=== PATIENT | male | born 1985 | race Hispanic/Latino ===

== ENCOUNTER 2023-09-07 22:26 | Emergency (ER) | payer SELFPAY ==
[2023-09-07] MEDS ORDERED: MORPHINE 4 MG/ML SYR ONE (23:50)
[2023-09-07] MEDS ORDERED: CEFTRIAXONE 1000 MG/VIAL ONE (23:50)
[2023-09-07] MEDS ORDERED: LIDOCAINE 1% MPF 30 ML VIAL ONE (23:51)
[2023-09-07] MEDS ORDERED: NA CHLORIDE 0.9% 50 ML ONE (23:51)
[2023-09-07] MEDS ORDERED: ONDANSETRON 4 MG/2 ML VIAL ONE (23:51)
[2023-09-07] MEDS ORDERED: KETOROLAC 30 MG/ML INJ ONE (23:51)
[2023-09-08] MEDS ORDERED: SMZ./TMP. 800/160 MG TABLET ONE (00:07)
[2023-09-08] MEDS ORDERED: LIDOCAINE 1% MPF 30 ML VIAL ONE (01:10)
[2023-09-08] MEDS ORDERED: LIDOCAINE 1% 20 ML MDV ONE (01:10)
--- NOTE | 2023-09-08 01:27 | EDPHYS ---
Physician Documentation [facility] Name: Joey Arreguin Age: 38 yrs Sex: Male : 1985 Arrival Date: 09/07/2023 Time: 22:26 Bed 8 Private MD: ED Physician Dalton Moon HPI: 09/07 22:32 This 38 yrs old Male presents to ER via Unassigned with complaints of Back sp4 Pain. 22:51 Upper back abscess . sp4 09/08 03:08 Patient presents with worsening upper midline pain over the back starting 4 days ago. sp4 There is redness and swelling indicative of cutaneous abscess of the upper back at the midline. . Historical: - Allergies: 09/07 22:53 No Known Allergies; lg3 - Home Meds: 22:53 lisinopril 40 mg Oral tablet 1 tab daily [Active]; lg3 - PMHx: 22:53 Hypertensive disorder; lg3 - PSHx: 22:53 None; lg3 - Immunization history:: Adult Immunizations up to date. - Social history:: Smoking status: Patient reports the use of cigarette tobacco products, smokes one-half pack cigarettes per day, Patient uses alcohol, only on a social basis. - Family history:: not pertinent. ROS: 09/08 03:08 Constitutional: Negative for fever, chills, and weight loss, Positive for Upper back sp4 pain and swelling, redness All other systems are negative, Exam: 03:08 Constitutional: This is a well developed, well nourished patient who is awake, alert, sp4 and in no acute distress. Head/Face: Normocephalic, atraumatic. Eyes: Pupils equal round and reactive to light, extra-ocular motions intact. Lids and lashes normal. Conjunctiva and sclera are not injected. Cornea within normal limits. Periorbital areas with no swelling, redness, or edema. ENT: Nares patent. No nasal discharge, no septal abnormalities noted. Tympanic membranes are normal and external auditory canals are clear. Oropharynx with no redness, swelling, or masses, exudates, or evidence of obstruction, uvula midline. Mucous membranes moist. Neck: Trachea midline, no thyromegaly or masses palpated, and no cervical lymphadenopathy. Supple, full range of motion without nuchal rigidity, or vertebral point tenderness. Chest/axilla: Normal chest wall appearance and motion. Nontender with no deformity. No lesions are appreciated. Cardiovascular: Regular rate and rhythm with a normal S1 and S2. No gallops, murmurs, or rubs. Normal PMI, no JVD. No pulse deficits. Respiratory: Lungs have equal breath sounds bilaterally, clear to auscultation and percussion. No rales, rhonchi or wheezes noted. No increased work of breathing, no retractions or nasal flaring. Abdomen/GI: Soft, non-tender, with normal bowel sounds. No distension or tympany. No guarding or rebound. No evidence of tenderness throughout. Back: No spinal tenderness. No costovertebral tenderness. Positive upper back redness, pain, tenderness, swelling indicative of infected moderate size sebaceous cyst. Skin: Warm, dry with normal turgor. Normal color with no rashes, no lesions, and no evidence of cellulitis. MS/ Extremity: Pulses equal, no cyanosis. Neurovascular intact. Full, normal range of motion. Neuro: Awake and alert, GCS 15, oriented to person, place, time, and situation. Cranial nerves II-XII grossly intact. Motor strength 5/5 in all extremities. Sensory grossly intact. Psych: Awake, alert, with orientation to person, place and time. Behavior, mood, and affect are within normal limits Vital Signs: 09/07 22:48 BP 139 / 93; Pulse 110; Resp 17 S; Temp 98.9(O); Pulse Ox 97% on R/A; Weight 112.04 kg lg3 (R); Height 5 ft. 9 in. (R); Pain 08/19; 09/08 00:05 BP 136 / 79; Pulse 93; Resp 16; Pulse Ox 96% ; jb4 01:30 BP 143 / 92; Pulse 86; Resp 16 S; Pulse Ox 96% on R/A; km8 09/07 22:48 Body Mass Index 36.48 (112.04 kg, 175.26 cm) lg3 09/07 22:48 Pain Scale: Adult lg3 Procedures: 01:23 I \T\ D: Incision and drainage was performed for an abscess of the bilateral posterior sp4 chest upper back midline , thoracic spinal area , Infected sebaceous cyst Prepped with Betadine, Anesthetized with 30 ml's 1% Lidocaine. Incised with #11 blade. Drained moderate amount purulent fluid. bloody fluid. Abscess cavity explored. Packed with iodoform gauze, Dressing: sterile 4x4 gauze, Foam tape the patient tolerated the procedure well, This appears to be infected sebaceous cyst over the upper back, infected sebaceous material was drained and iodoform packing 1 inch was placed. Patient advised to return back on Friday in 2 days at 9 PM for packing removal and dressing change. . MDM: 09/07 22:34 Patient medically screened. sp4 09/08 01:23 Differential diagnosis: Abscess, sebaceous cyst, sebaceous infected cyst, diabetic sp4 abscess. Data reviewed: vital signs, nurses notes, lab test result(s). Consideration of Admission/Observation Escalation of care including admission/observation considered. ED course: Patient will be prescribed Bactrim twice a day for 10 days ibuprofen 800 mg 3 times a day and will advise patient to return in 2 days at 9 PM for packing removal and dressing change. . 09/08 01:38 Order name: Glucose, Ancillary Testing EDMS 09/07 22:42 Order name: IV Saline Lock; Complete Time: 23:13 sp4 09/07 22:50 Order name: Incision \T\ Drainage Setup; Complete Time: 23:27 sp4 09/08 00:53 Order name: Accucheck Blood Glucose; Complete Time: 01:52 sp4 Administered Medications: 09/07 23:56 Drug: morphine IVP or IV 4 mg IVP once over 4 mins Route: IVP; Infused Over: 4 mins; jb Site: right hand; 09/08 02:05 Follow up: Response: No adverse reaction [facility] 09/07 23:56 Drug: Ketorolac IVP 30 mg IVP once Route: IVP; Site: right hand; 4 09/08 02:05 Follow up: Response: No adverse reaction [facility] 09/07 23:56 Drug: Ondansetron IVP 4 mg IVP once; over 2 minutes Route: IVP; Site: right hand; [facility] 09/08 02:05 Follow up: Response: No adverse reaction [facility] 09/07 23:56 Drug: Trimethoprim-Sulfamethoxazole PO (160 mg-800 mg (DS) 1 tablet PO once Route: PO; [facility] 09/08 02:05 Follow up: Response: No adverse reaction km8 09/07 23:57 Drug: Rocephin - Rocephin (cefTRIAXone) IVPB 1 grams IVPB once over 30 mins; (mix in 50 jb4 mL NS) Route: IVPB; Infused Over: 30 mins; Site: right hand; 09/08 00:23 Follow up: Response: No adverse reaction; IV Status: Completed infusion; IV Intake: [id number] 01:15 Drug: Lidocaine Infiltration (1 %) 30 ml 20 ml Infiltration once; to bedside {Note: km8 given by Dr. Moon.} Volume: 20 ml; Route: Infiltration; 02:05 Follow up: Response: No adverse reaction km8 01:58 Drug: Sellers PO 10 mg-325 mg 1 tabs PO once Route: PO; km8 02:05 Follow up: Response: No adverse reaction km8 Disposition Summary: 09/08/23 01:26 Discharge Ordered Problem: new sp4 Symptoms: have improved sp4 Condition: Stable sp4 Diagnosis - Cutaneous abscess of back [any part, except buttock] sp4 - Sebaceous cyst sp4 Followup: sp4 - With: Private Physician - When: 2 - 3 days - Reason: Recheck today's complaints Discharge Instructions: - Discharge Summary Sheet sp4 - Skin Abscess sp4 Forms: - Patient Portal Instructions sp4 - Work release form km8 Prescriptions: - Ibuprofen 800 mg Oral Tablet - take 1 tablet ORAL route every 8 hours As needed take with food; 30 tablet; sp4 Refills: 0, Product Selection Permitted - Bactrim DS 800-160 mg Oral Tablet - take 1 tablet ORAL route every 12 hours for 10 days; 20 tablet; Refills: 0, sp4 Product Selection Permitted Signatures: Dispatcher [employer] EDMS Kleber Olivas RN RN jb4 Judit Bee, RN RN lg3 Dalton Moon MD MD sp4 Karen Guerra RN RN km8 Corrections: (The following items were deleted from the chart) 00:05 09/07 22:42 Labs collected and sent ordered. sp4 jb4 09/08 01:27 09/07 22:42 Test, Urine+[id number].LAB.BRZ ordered. EDMS EDMS
--- NOTE | 2023-09-08 01:27 | ER ---
Nurse's Notes [facility] Name: Joey Arreguin Age: 38 yrs Sex: Male : 1985 Arrival Date: 09/07/2023 Time: 22:26 Bed 8 Private MD: Diagnosis: Cutaneous abscess of back [any part, except buttock];Sebaceous cyst Presentation: 09/07 22:48 Chief complaint: Patient states: abscess on back X4 days. Coronavirus screen: Client lg3 denies travel out of the [place] in the last 14 days. At this time, the client does not indicate any symptoms associated with coronavirus-19. Ebola Screen: No symptoms or risks identified at this time. Initial Sepsis Screen: Does the patient meet any 2 criteria? No. Patient's initial sepsis screen is negative. Does the patient have a suspected source of infection? No. Patient's initial sepsis screen is negative. Risk Assessment: Do you want to hurt yourself or someone else? Patient reports no desire to harm self or others. Onset of symptoms is unknown. 22:48 Method Of Arrival: Ambulatory lg3 22:48 Acuity: NIESHA 3 lg3 Triage Assessment: 22:53 General: Appears in no apparent distress. uncomfortable, Behavior is calm, cooperative. lg3 Pain: Complains of pain in back. EENT: No deficits noted. No signs and/or symptoms were reported regarding the EENT system. Neuro: No deficits noted. Mauricio Agitation-Sedation Scale (RASS): 0 - Alert and Calm Level of Consciousness is awake, alert, obeys commands, Oriented to person, place, time, situation. Cardiovascular: No deficits noted. Denies chest pain, shortness of breath, Capillary refill < 3 seconds Clubbing of nail beds is absent JVD is absent Patient's skin is warm and dry. Respiratory: No deficits noted. Airway is patent Respiratory effort is even, unlabored, Respiratory pattern is regular, symmetrical. GI: No deficits noted. No signs and/or symptoms were reported involving the gastrointestinal system. : No deficits noted. No signs and/or symptoms were reported regarding the genitourinary system. Derm: Abscess located on back. Musculoskeletal: No deficits noted. Circulation, motion, and sensation intact. Range of motion: intact in all extremities. Historical: - Allergies: 22:53 No Known Allergies; lg3 - Home Meds: 22:53 lisinopril 40 mg Oral tablet 1 tab daily [Active]; lg3 - PMHx: 22:53 Hypertensive disorder; lg3 - PSHx: 22:53 None; lg3 - Immunization history:: Adult Immunizations up to date. - Social history:: Smoking status: Patient reports the use of cigarette tobacco products, smokes one-half pack cigarettes per day, Patient uses alcohol, only on a social basis. - Family history:: not pertinent. Screenin/30 00:00 Abuse screen: Denies threats or abuse. Denies injuries from another. km8 00:00 [facility] ED Fall Risk Assessment (Adult) History of falling in the last 3 months, km8 including since admission No falls in past 3 months (0 pts) Confusion or Disorientation No (0 pts) Intoxicated or Sedated No (0 pts) Impaired Gait No (0 pts) Mobility Assist Device Used No (0 pt) Altered Elimination No (0 pt) Score/Fall Risk Level 0 - 2 = Low Risk Oriented to surroundings, Maintained a safe environment, Educated pt \T\ family on fall prevention, incl call for assistance when getting out of bed, Assessed \T\ reinforced patient's understanding of fall precautions. Nutritional screening: No deficits noted. Tuberculosis screening: No symptoms or risk factors identified. Assessment: 09/07 23:00 Reassessment: see triage note. jb4 09/08 00:05 Reassessment: Patient appears in no apparent distress at this time. Patient and/or jb4 family updated on plan of care and expected duration. Pain level reassessed. Patient is alert, oriented x 3, equal unlabored respirations, skin warm/dry/pink. Vital Signs: 09/07 22:48 BP 139 / 93; Pulse 110; Resp 17 S; Temp 98.9(O); Pulse Ox 97% on R/A; Weight 112.04 kg lg3 (R); Height 5 ft. 9 in. (R); Pain 08/19; 09/08 00:05 BP 136 / 79; Pulse 93; Resp 16; Pulse Ox 96% ; jb4 01:30 BP 143 / 92; Pulse 86; Resp 16 S; Pulse Ox 96% on R/A; km8 09/07 22:48 Body Mass Index 36.48 (112.04 kg, 175.26 cm) lg3 09/07 22:48 Pain Scale: Adult lg3 ED Course: 09/07 22:29 Patient arrived in ED. mr 22:32 Dalton Moon MD is Attending Physician. sp4 22:53 Triage completed. lg3 22:53 Arm band placed on right wrist. lg3 23:13 Inserted saline lock: 22 gauge in right hand, using aseptic technique. 6 23:17 Karen Guerra, RN is Primary Nurse. km8 09/08 00:00 Patient has correct armband on for positive identification. Placed in gown. Bed in low km8 position. Call light in reach. Side rails up X 1. Client placed on continuous cardiac and pulse oximetry monitoring. NIBP monitoring applied. 01:15 Assist provider with I \T\ D: Performed by Dalton Moon MD Patient tolerated well. km8 Portia, PCT assisted. 02:02 Provided Education on: d/c teaching and ABX teaching. 8 02:02 IV discontinued, intact, bleeding controlled, No redness/swelling at site. Pressure 8 dressing applied. Administered Medications: 09/07 23:56 Drug: morphine IVP or IV 4 mg IVP once over 4 mins Route: IVP; Infused Over: 4 mins; jb4 Site: right hand; 09/08 02:05 Follow up: Response: No adverse reaction [facility] 09/07 23:56 Drug: Ketorolac IVP 30 mg IVP once Route: IVP; Site: right hand; jb4 09/08 02:05 Follow up: Response: No adverse reaction [facility] 09/07 23:56 Drug: Ondansetron IVP 4 mg IVP once; over 2 minutes Route: IVP; Site: right hand; jb4 09/08 02:05 Follow up: Response: No adverse reaction [facility] 09/07 23:56 Drug: Trimethoprim-Sulfamethoxazole PO (160 mg-800 mg (DS) 1 tablet PO once Route: PO; 4 09/08 02:05 Follow up: Response: No adverse reaction [facility] 09/07 23:57 Drug: Rocephin - Rocephin (cefTRIAXone) IVPB 1 grams IVPB once over 30 mins; (mix in 50 jb4 mL NS) Route: IVPB; Infused Over: 30 mins; Site: right hand; 09/08 00:23 Follow up: Response: No adverse reaction; IV Status: Completed infusion; IV Intake: [id number] 01:15 Drug: Lidocaine Infiltration (1 %) 30 ml 20 ml Infiltration once; to bedside {Note: km8 given by Dr. Moon.} Volume: 20 ml; Route: Infiltration; 02:05 Follow up: Response: No adverse reaction km8 01:58 Drug: Trail PO 10 mg-325 mg 1 tabs PO once Route: PO; km8 02:05 Follow up: Response: No adverse reaction km8 Medication: 02:02 VIS not applicable for this client. km8 Intake: 00:23 IV: 50ml; Total: 50ml. km8 Outcome: 01:26 Discharge ordered by MD. hwang 02:02 Discharged to home ambulatory, with family, km8 02:02 Condition: good 02:02 Discharge instructions given to patient, family, Instructed on discharge instructions, follow up and referral plans. medication usage, Demonstrated understanding of instructions, follow-up care, medications, Prescriptions given X 2, 02:06 Patient left the ED. km8 Signatures: Juli Livingston, Reg Reg mr BrendonKleber, RN RN jb4 Judit Bee, RN RN luis m3 Samreen Padron Sergey, MD MD sp4 Karen Guerra, ARNAUD RN km8
[2023-09-08] MEDS ORDERED: HYDROCODONE/APAP 10/325 TAB ONE (02:08)
[2023-09-08 02:37] VITALS: TEMP 98.9
[2023-09-08 02:43] VITALS: O2SAT 96
[2023-09-08 02:44] VITALS: BP 143/92
== END 2023-09-08 02:06 | disposition home or self-care (01) ==
LOC: ER 22:26
PROC: 0H96XZZ Drainage of Back Skin, External Approach (ICD-10-PCS; principal; 2023-09-08)
DX: L02.212 Cutaneous abscess of back [any part, except buttock and flank] (principal); L72.3 Sebaceous cyst
CPT/HCPCS: 82947; 96365; 96375; 99284; J0696; J2001; J2405

== ENCOUNTER 2023-09-09 20:43 | Emergency (ER) | payer SELFPAY ==
--- NOTE | 2023-09-09 21:39 | ER ---
Nurse's Notes [facility] Name: Joey Arreguin Age: 38 yrs Sex: Male : 1985 Arrival Date: 09/09/2023 Time: 20:43 Bed 12 Private MD: Diagnosis: Cutaneous abscess of trunk;Cutaneous abscess of upper back Presentation: 09/09 20:59 Chief complaint: Patient states: Was seen here on Friday for an abscess on his neck, j7 states doctor instructed him to come back tonight to remove the drain. Coronavirus screen: Vaccine status: Patient reports receiving the 2nd dose of the covid vaccine. Ebola Screen: Patient denies travel to an Ebola-affected area in the 21 days before illness onset. Initial Sepsis Screen: Does the patient meet any 2 criteria? No. Patient's initial sepsis screen is negative. Does the patient have a suspected source of infection? No. Patient's initial sepsis screen is negative. Risk Assessment: Do you want to hurt yourself or someone else? Patient reports no desire to harm self or others. Onset of symptoms was September 07, 2023. 20:59 Method Of Arrival: Ambulatory [facility] 20:59 Acuity: NIESHA 5 jj7 Historical: - Allergies: 21:04 No Known Allergies; jj7 - Home Meds: 21:04 lisinopril 40 mg Oral tablet 1 tab daily [Active]; jj7 - PMHx: 21:04 Hypertensive disorder; jj7 - Immunization history:: Client reports receiving the 2nd dose of the Covid vaccine. - Social history:: Smoking status: Patient reports the use of cigarette tobacco products, smokes one-half pack cigarettes per day. - Family history:: not pertinent. Screenin:44 [facility] ED Fall Risk Assessment (Adult) History of falling in the last 3 months, cp4 including since admission No falls in past 3 months (0 pts) Confusion or Disorientation No (0 pts) Intoxicated or Sedated No (0 pts) Impaired Gait No (0 pts) Mobility Assist Device Used No (0 pt) Altered Elimination No (0 pt) Score/Fall Risk Level 0 - 2 = Low Risk Oriented to surroundings, Maintained a safe environment, Educated pt \T\ family on fall prevention, incl call for assistance when getting out of bed, Hourly rounding (assess needs \T\ fall precautionary measures) done. Abuse screen: Denies threats or abuse. Nutritional screening: No deficits noted. Tuberculosis screening: No symptoms or risk factors identified. Assessment: 21:44 General: Appears in no apparent distress. Behavior is calm, cooperative, appropriate cp4 for age. Pain: Denies pain. Vital Signs: 20:59 BP 141 / 89; Pulse 77; Resp 18; Temp 98.6(TE); Pulse Ox 99% ; Weight 122.47 kg; Height jj7 5 ft. 9 in. ; 21:45 BP 144 / 90; Pulse 74; Resp 16; Pulse Ox 99% ; cp4 20:59 Body Mass Index 39.87 (122.47 kg, 175.26 cm) [facility] ED Course: 20:46 Patient arrived in ED. gm2 20:49 Dalton Moon MD is Attending Physician. sp4 21:03 Alexandra Simmons is Primary Nurse. cp4 21:03 Triage completed. [facility] 21:04 Arm band placed on right wrist. [facility] 21:44 Bed in low position. Call light in reach. Side rails up X 1. Provided Education on: cp4 skin abscess. 21:44 No provider procedures requiring assistance completed. Patient did not have IV access cp4 during this emergency room visit. Administered Medications: No medications were administered Medication: 21:44 VIS not applicable for this client. cp4 Outcome: 21:39 Discharge ordered by . sp4 21:44 Discharged to home ambulatory, cp4 21:44 Condition: stable 21:44 Discharge instructions given to patient, Instructed on discharge instructions, follow up and referral plans. Demonstrated understanding of instructions, follow-up care, 21:46 Patient left the ED. cp4 Signatures: Gene Cao RN RN [facility] Dalton Moon MD MD spAlexandra Caputo cp4 Gabby Villalobos [facility] Corrections: (The following items were deleted from the chart) 21:05 20:59 Pulse 77bpm; Resp 18bpm; Pulse Ox 99%; Temp 98.6F Temporal; 122.47 kg; Height 5 jj7 ft. 9 in.; BMI: 39.8; [facility]
--- NOTE | 2023-09-09 21:39 | EDPHYS ---
Physician Documentation [facility] Name: Joey Arreguin Age: 38 yrs Sex: Male : 1985 Arrival Date: 09/09/2023 Time: 20:43 Bed 12 Private MD: ED Physician Dalton Moon HPI: 09/09 20:50 This 38 yrs old Male presents to ER via Unassigned with complaints of DRAIN sp4 CHANGE/ DRESSING CHANGE. 20:50 Patient is a 38-year-old male who presents with abscess check. Patient had abscess sp4 drained on the upper back on 09/07/2023 which was basically a infected large sebaceous cyst. Patient was advised to return for packing removal and dressing change. Patient is feeling improved. Historical: - Allergies: 21:04 No Known Allergies; jj7 - Home Meds: 21:04 lisinopril 40 mg Oral tablet 1 tab daily [Active]; jj7 - PMHx: 21:04 Hypertensive disorder; jj7 - Immunization history:: Client reports receiving the 2nd dose of the Covid vaccine. - Social history:: Smoking status: Patient reports the use of cigarette tobacco products, smokes one-half pack cigarettes per day. - Family history:: not pertinent. ROS: 20:50 Constitutional: Negative for fever, chills, and weight loss, Skin: Negative for injury, sp4 rash, and discoloration, positive for drained abscess upper back in the midline. 20:50 All other systems are negative, Exam: 20:50 Constitutional: This is a well developed, well nourished patient who is awake, alert, sp4 and in no acute distress. Head/Face: Normocephalic, atraumatic. Eyes: Pupils equal round and reactive to light, extra-ocular motions intact. Lids and lashes normal. Conjunctiva and sclera are not injected. Cornea within normal limits. Periorbital areas with no swelling, redness, or edema. ENT: Nares patent. No nasal discharge, no septal abnormalities noted. Tympanic membranes are normal and external auditory canals are clear. Oropharynx with no redness, swelling, or masses, exudates, or evidence of obstruction, uvula midline. Mucous membranes moist. Neck: Trachea midline, no thyromegaly or masses palpated, and no cervical lymphadenopathy. Supple, full range of motion without nuchal rigidity, or vertebral point tenderness. Chest/axilla: Normal chest wall appearance and motion. Nontender with no deformity. No lesions are appreciated. Cardiovascular: Regular rate and rhythm with a normal S1 and S2. No gallops, murmurs, or rubs. Normal PMI, no JVD. No pulse deficits. Respiratory: Lungs have equal breath sounds bilaterally, clear to auscultation and percussion. No rales, rhonchi or wheezes noted. No increased work of breathing, no retractions or nasal flaring. Abdomen/GI: Soft, non-tender, with normal bowel sounds. No distension or tympany. No guarding or rebound. No evidence of tenderness throughout. Back: No spinal tenderness. No costovertebral tenderness. Upper back midline draining abscess with packing present. Skin: Warm, dry with normal turgor. Normal color with no rashes, no lesions, and no evidence of cellulitis. MS/ Extremity: Pulses equal, no cyanosis. Neurovascular intact. Full, normal range of motion. Neuro: Awake and alert, GCS 15, oriented to person, place, time, and situation. Cranial nerves II-XII grossly intact. Motor strength 5/5 in all extremities. Sensory grossly intact. Psych: Awake, alert, with orientation to person, place and time. Behavior, mood, and affect are within normal limits Vital Signs: 20:59 BP 141 / 89; Pulse 77; Resp 18; Temp 98.6(TE); Pulse Ox 99% ; Weight 122.47 kg; Height jj7 5 ft. 9 in. ; 21:45 BP 144 / 90; Pulse 74; Resp 16; Pulse Ox 99% ; cp4 20:59 Body Mass Index 39.87 (122.47 kg, 175.26 cm) jj7 MDM: 20:59 Patient medically screened. sp4 21:40 Differential Diagnosis altered mental status, sepsis, flu. Data reviewed: vital signs, sp4 nurses notes, old medical records. ED course: Packing removed , Abscess site cleansed , Dressing replaced . ED course: Abscess care instructions provided with ms sql server developer , Stable for discharge at this time . Administered Medications: No medications were administered Disposition Summary: 09/09/23 21:39 Discharge Ordered Problem: new sp4 Symptoms: have improved sp4 Condition: Stable sp4 Diagnosis - Cutaneous abscess of trunk sp4 - Cutaneous abscess of upper back sp4 Followup: sp4 - With: Private Physician - When: As needed - Reason: Discharge Instructions: - Discharge Summary Sheet sp4 - Skin Abscess sp4 Forms: - Patient Portal Instructions sp4 Signatures: Dispatcher [employer] Gene Alexandra RN RN jj7 Dalton Moon MD MD sp4
[2023-09-09 21:51] VITALS: TEMP 98.6; O2SAT 99
[2023-09-09 21:52] VITALS: BP 144/90
== END 2023-09-09 21:46 | disposition home or self-care (01) ==
LOC: ER 20:43
DX: Z48.01 Encounter for change or removal of surgical wound dressing (principal)
CPT/HCPCS: 99282